=== PATIENT | male | born 1940 | race Caucasian/White ===

== ENCOUNTER 2017-07-14 18:58 | Inpatient (IN) | payer OTHER ==
[~2017-07-14] VITALS: Ht 185.4 cm; Wt 104.2 kg
[~2017-07-14 18:58] MED LIST: ASCORBIC ACID500 M3 PO; ASPIR 8181 M1 PO; CARDURA4 MG PO; CRESTOR40 MG PO; CYANOCOBALAM1000 MCG PO; DIABETA,MICRONAS5 MG PO; GLYBURIDE5 MG PO; JANUVIA100 MG PO; LOTENSIN10 MG PO; METOPROLOL SUC100 MG PO; NORVASC10 MG PO; OMEPRAZOLE40 M1 PO; PLAVIX75 MG PO; VITAMIN D31000 UNI2 PO
[2017-07-14 20:40] LABS: HEMOGLOBIN 12.2 G/DL (12.5-16.6); MCH 31.3 PG (29.0-34.0); MCV 94.9 FL (86-99); PLATELET COUNT 217 K/uL (156-360); RBC DIS.WIDTH-SD 44.7 % (39-53); WHITE BLOOD COUNT 10.5 K/uL (4.1-10.2)
[2017-07-14 20:49] LABS: ALBUMIN 3.8 g/dL (3.2-4.8); CHLORIDE 102 mEq/L (99-109); POTASSIUM 4.4 mEq/L (3.7-5.4); SODIUM 139 mEq/L (136-147)
[2017-07-14 20:49] LABS: PTT 26.3 SEC (25-37)
[2017-07-14 20:51] LABS: GLUCOSE 81 mg/dL (70-99); TOTAL PROTEIN 6.9 g/dL (6.4-8.3)
[2017-07-14 20:53] LABS: TOTAL BILIRUBIN 0.5 mg/dL (0.0-1.0)
[2017-07-14 20:55] LABS: ALKALINE PHOSPHATASE 58 IU/L (3-129); CREATININE 3.2 mg/dL (0.6-1.3); GFR ESTIMATE (CALCULATED) 20 mL/min/ (58.99-99999)
[2017-07-14 20:56] LABS: UREA NITROGEN (BUN) 59 mg/dL (9-23)
[2017-07-14 20:57] LABS: AST (GOT) 29 IU/L (2-34)
[2017-07-14 20:58] LABS: ALT (GPT) 23 IU/L (3-49)
[2017-07-14 21:01] LABS: TROP-I INTERPRETATION NEGATIVE; TROPONIN-I 0.01 ng/mL (0.0-0.30)
[2017-07-14 22:34] LABS: APPEARANCE SL.HAZY ((CLEAR)); BILIRUBIN NEGATIVE; BLOOD MODERATE; COLOR YELLOW ((YELLOW)); GLUCOSE (STRIP) NEGATIVE; KETONES NEGATIVE; LEUKOCYTES NEGATIVE; NITRITE NEGATIVE; PROTEIN (STRIP) 100; SPECIFIC GRAVITY 1.014 (1.000-1.030); UROBILINOGEN 0.2 MG/DL (0.2-1.0)
[2017-07-14 22:43] LABS: BACTERIA RARE /HPF; EPITHELIAL CELLS NONE SEEN /HPF; MUCUS TRACE /LPF; RED BLOOD CELLS 0-5 /HPF (0-5); UCUL ADDED? NO; WHITE BLOOD CELLS 0-5 /HPF (0-5)
[2017-07-15] MEDS ORDERED: MICARDIS HCT1 TABLE1 PO (01:02)
[2017-07-15] MEDS ORDERED: ACTOS30 MG PO (01:02)
[2017-07-15] MEDS ORDERED: FLONASE16 G1 BOTH NARES (01:03)
[2017-07-15] MEDS ORDERED: FISH OIL 1,0001 EAC7 PO (01:03)
[2017-07-15 15:38] VITALS: BP 155/71
[2017-07-15 20:08] VITALS: BP 165/73
[2017-07-16 00:15] VITALS: BP 130/62
[2017-07-16 04:36] VITALS: BP 131/64
[2017-07-16 07:39] VITALS: BP 133/71
[2017-07-16 07:58] LABS: HEMATOCRIT 31.3 % (38.0-50.0); MCH 31.3 PG (29.0-34.0); MCHC 32.3 G/DL (30.0-36.0); MCV 96.9 FL (86-99); RBC DIS.WIDTH-CV 13.1 % (11.8-14.6); RBC DIS.WIDTH-SD 46.7 % (39-53); RED BLOOD COUNT 3.23 M/uL (4.00-5.50); WHITE BLOOD COUNT 7.7 K/uL (4.1-10.2)
[2017-07-16 07:59] LABS: HEMOGLOBIN 10.1 G/DL (12.5-16.6)
[2017-07-16 08:13] LABS: CHLORIDE 103 MEQ/L (99-109); GFR ESTIMATE (CALCULATED) 28 mL/min/ (58.99-99999); POTASSIUM 4.1 MEQ/L (3.7-5.4); SODIUM 139 MEQ/L (136-147); UREA NITROGEN (BUN) 42 mg/dL (9-23)
[2017-07-16 08:14] LABS: CREATININE 2.4 MG/DL (0.6-1.3); GLUCOSE 114 mg/dL (70-99)
[2017-07-16 08:24] LABS: PLAT.SUFFICIENCY ADEQUATE; PLATELET CLUMPS PRESENT - PLATELET COUNT APPEARS ADQ.
[2017-07-16 08:26] LABS: PLATELET COUNT UNABLE TO REPORT K/uL (156-360)
[2017-07-16 08:38] LABS: MAGNESIUM 1.7 mg/dl (1.3-2.7)
[2017-07-16 15:41] VITALS: BP 159/75
[2017-07-16 19:36] VITALS: BP 133/60
[2017-07-16 23:39] VITALS: BP 131/60
[2017-07-17 04:08] VITALS: BP 138/63
[2017-07-17 08:08] VITALS: BP 139/65
[2017-07-17 10:59] VITALS: BP 139/65
[2017-07-17 11:43] LABS: HEMATOCRIT 32.9 % (38.0-50.0); HEMOGLOBIN 10.8 G/DL (12.5-16.6); MCH 32.2 PG (29.0-34.0); MCHC 32.8 G/DL (30.0-36.0); MCV 98.2 FL (86-99); RBC DIS.WIDTH-CV 13.2 % (11.8-14.6); RBC DIS.WIDTH-SD 46.9 % (39-53); RED BLOOD COUNT 3.35 M/uL (4.00-5.50); WHITE BLOOD COUNT 8.2 K/uL (4.1-10.2)
[2017-07-17 12:10] LABS: CHLORIDE 102 MEQ/L (99-109); CREATININE 2.2 MG/DL (0.6-1.3); GFR ESTIMATE (CALCULATED) 31 mL/min/ (58.99-99999); POTASSIUM 4.3 MEQ/L (3.7-5.4); SODIUM 138 MEQ/L (136-147); UREA NITROGEN (BUN) 32 mg/dL (9-23)
[2017-07-17 12:11] LABS: GLUCOSE 184 mg/dL (70-99)
[2017-07-17 16:25] VITALS: BP 142/67
[2017-07-17 23:49] VITALS: BP 133/64
[2017-07-18 06:00] LABS: CHLORIDE 100 MEQ/L (99-109); CREATININE 2.3 MG/DL (0.6-1.3); GFR ESTIMATE (CALCULATED) 30 mL/min/ (58.99-99999); GLUCOSE 185 mg/dL (70-99); POTASSIUM 4.4 MEQ/L (3.7-5.4); SODIUM 139 MEQ/L (136-147); UREA NITROGEN (BUN) 34 mg/dL (9-23)
[2017-07-18 08:26] VITALS: BP 155/69
[2017-07-18 10:52] VITALS: BP 146/65
[2017-07-18 18:11] VITALS: BP 153/71
[2017-07-18 20:24] VITALS: BP 156/69
[2017-07-18 23:56] VITALS: BP 153/69
[2017-07-19 04:26] VITALS: BP 159/74
[2017-07-19 07:56] VITALS: BP 150/70
[2017-07-19 11:06] VITALS: BP 140/68
[2017-07-19 15:21] VITALS: BP 141/65
[2017-07-19 20:58] VITALS: BP 140/80
[2017-07-19 23:12] VITALS: BP 153/84
[2017-07-20 04:35] VITALS: BP 155/70
[2017-07-20 08:12] VITALS: BP 146/68
[2017-07-20 12:02] VITALS: BP 133/63
[2017-07-20 15:13] VITALS: BP 147/67
[2017-07-20] MEDS ORDERED: POLYETHYLENE GL17 GM PO (15:54)
[2017-07-20] MEDS ORDERED: DOCUSATE SODIU100 MG PO (15:54)
[2017-07-20] MEDS ORDERED: PREDNISONE10 MG PO (15:54)
[2017-07-20] MEDS ORDERED: AUGMENTIN875 MG PO (16:10)
== END 2017-07-20 18:10 | disposition home health service (06) | DRG 199 ==
LOC: TRA 18:58 → EME 18:58 → 3EAST 07-15 01:53 → EDOF 07-15 01:53 → ENRESERV 07-15 01:55 → EDOF 07-15 03:59 → ENRESERV 07-15 15:07 → 3EAST 07-15 15:27
PROVIDERS: Hospitalist; Nurse Practitioner Family; Physician Assistant
PROC: HZ2ZZZZ Detoxification Services for Substance Abuse Treatment (ICD-10-PCS; principal; 2017-07-15)
DX: S27.0XXA Traumatic pneumothorax, initial encounter (principal); J18.9 Pneumonia, unspecified organism; S22.42XA Multiple fractures of ribs, left side, initial encounter for closed fracture; J91.8 Pleural effusion in other conditions classified elsewhere; J44.0 Chronic obstructive pulmonary disease with (acute) lower respiratory infection; J44.1 Chronic obstructive pulmonary disease with (acute) exacerbation; N18.4 Chronic kidney disease, stage 4 (severe); J98.11 Atelectasis; W10.8XXA Fall (on) (from) other stairs and steps, initial encounter; N17.9 Acute kidney failure, unspecified; S01.81XA Laceration without foreign body of other part of head, initial encounter; S01.01XA Laceration without foreign body of scalp, initial encounter; E86.0 Dehydration; F10.20 Alcohol dependence, uncomplicated; K21.9 Gastro-esophageal reflux disease without esophagitis; E78.5 Hyperlipidemia, unspecified; E11.22 Type 2 diabetes mellitus with diabetic chronic kidney disease; D64.9 Anemia, unspecified; I12.9 Hypertensive chronic kidney disease with stage 1 through stage 4 chronic kidney disease, or unspecified chronic kidney disease; R09.02 Hypoxemia; E53.8 Deficiency of other specified B group vitamins; F41.9 Anxiety disorder, unspecified; E66.9 Obesity, unspecified; Z87.891 Personal history of nicotine dependence; Z85.828 Personal history of other malignant neoplasm of skin; Z79.84 Long term (current) use of oral hypoglycemic drugs; Z79.82 Long term (current) use of aspirin; Z79.02 Long term (current) use of antithrombotics/antiplatelets; Z68.30 Body mass index [BMI] 30.0-30.9, adult; Z79.51 Long term (current) use of inhaled steroids; Z91.81 History of falling; Y92.008 Other place in unspecified non-institutional (private) residence as the place of occurrence of the external cause; Z82.49 Family history of ischemic heart disease and other diseases of the circulatory system; Z83.3 Family history of diabetes mellitus
CPT/HCPCS: 70450; 71045; 71046; 71100; 80048; 80053; 81003; 82948; 83735; 84484; 85027; 85610; 85730; 93005; 94010; 94640; 94640 76; 94760; 94799; 99202; 99281; 99285; J0295; J1644; J1815; J1940; J2270; J2405; J3010; J7030; J7050; J7512